=== PATIENT | male | born 1965 | race African-American/Black ===

== ENCOUNTER 2019-12-04 19:18 | Inpatient (IN) | payer OTHER ==
[~2019-12-04] VITALS: Ht 177.8 cm; Wt 97.7 kg
[2019-12-04] MEDS ORDERED: IV NORMAL SALINE 1,000ML 1,000 ML IV SCH (19:29)
[2019-12-04] MEDS ORDERED: ASPIRIN CHEWABLE 81 MG TABLET. PO ONE (19:45)
[2019-12-04] MEDS: MORPHINE SULFATE 4 MG/ML DISP.SYRIN. IV/SQ PRN ×2 (20:00→20:58)
--- NOTE | 2019-12-04 20:16 | RAD ---
PORTABLE CHEST 1V Clinical indications: Chest pain and shortness of breath for several days. COMPARISON: None available. Findings: No acute lung infiltrate or pleural effusion or pulmonary edema or lung mass or pneumothorax is seen. The heart size, pulmonary vasculature, mediastinum and both anshul are unremarkable. Impression: No acute radiographic abnormality is seen. Electronically signed by: Jalil Lopes MD (12/04/2019 8:12 PM) [facility] [place]
[2019-12-04 20:20] LABS: BASO % 1 % (0-3); EOS # 0.1 x10^3/uL (0.0-0.7); EOS % 2 % (0-3); HEMATOCRIT 40.6 % (39.0-53.0); HEMOGLOBIN 13.4 g/dL (13.0-17.5); LYMPH # 1.2 x10^3/uL (1.0-4.8); LYMPH % 32 % (24-48); MEAN CORPUSCULAR HEMOGLOBIN 29 pg (25-35); MEAN CORPUSCULAR HGB CONC 33 g/dL (31-37); MEAN CORPUSCULAR VOLUME 89 fL (79-100); MONO # 0.4 x10^3/uL (0.0-1.1); MONO % 11 % (0-9); NEUT # 2.1 x10^3uL (1.8-7.7); NEUT % 54 % (31-73); PLATELET COUNT 196 x10^3/uL (140-400); RED BLOOD COUNT 4.58 x10^6/uL (4.30-5.70); RED CELL DISTRIBUTION WIDTH 13.7 % (11.5-14.5); WHITE BLOOD COUNT 3.8 x10^3/uL (4.0-11.0)
[2019-12-04 20:27] LABS: CALCIUM 8.4 mg/dL (8.5-10.1); CREATININE 1.2 mg/dL (0.7-1.3); GFR 63.1; POTASSIUM 4.2 mmol/L (3.5-5.1)
--- NOTE | 2019-12-04 20:34 | PHYS DOC ---
Past History Past Medical History: Diabetes, Hypotension, Other Additional Past Medical Histor: tricuspid regurg Past Surgical History: No Surgical History Alcohol Use: None Social History Narrative: x 2 weeks ago General Adult EDM: Chief Complaint: CHEST PAIN HPI: HPI: Patient is a 54-year-old male who presents with complaint of chest pain and shortness of breath for the last day. Patient rates the chest pain at about a 4 out of 10. He also indicates that he has a headache that is currently a 6 out of 10. He states the shortness of breath is worsened with exertion. He describes the chest pain is sharp in nature. He does admit to mild cough. [] Review of Systems: Review of Systems: Constitutional: Denies fever or chills Respiratory: Complains of shortness of breath Cardiovascular: Denies chest pain or edema GI: Denies abdominal pain, nausea or diarrhea Neurologic: Denies headache, focal weakness or sensory changes A full 10 point review of systems has been reviewed and is otherwise negative. Heart Score: HEART Score for Chest Pain: HEART Score for Chest Pain Response (Comments) Value History Slighlty/Non-Suspicious 0 ECG Nonspecific Repolarizatio 1 Age >45 - < 65 1 Risk Factors 1 or 2 Risk Factors 1 Troponin < Normal Limit 0 Total 3 Risk Factors: Risk Factors: DM, Current or recent (<one month) smoker, HTN, HLP, family hi story of CAD, obesity. Risk Scores: Score 0 - 3: 2.5% MACE over next 6 weeks - Discharge Home Score 4 - 6: 20.3% MACE over next 6 weeks - Admit for Clinical Observation Score 7 - 10: 72.7% MACE over next 6 weeks - Early Invasive Strategies Current Medications: Current Meds: Current Medications Medications (Trade) Dose Ordered Sig/[facility] Start Time Stop Time Status Last Admin Dose Admin Aspirin (Aspirin Chewable) 324 mg 1X ONCE 12/04/19 19:45 12/04/19 19:46 DC Morphine Sulfate (Morphine 4mg Syringe) 4 mg PRN Q15MIN PRN 12/04/19 19:30 12/05/19 19:29 12/04/19 20:00 4 MG Sodium Chloride 1,000 ml @ 1,000 mls/hr Q1H 12/04/19 19:29 12/04/19 20:28 12/04/19 19:59 1,000 MLS/HR Allergies: Allergies: Allergies Coded Allergies Type Severity Reaction Last Updated Verified Fish Containing Products Allergy Intermediate hives 12/04/19 Yes Physical Exam: PE: Constitutional: Well developed, well nourished, no acute distress, non-toxic appearance. [] HENT: Normocephalic, atraumatic, bilateral external ears normal, oropharynx m oist, no oral exudates, nose normal. [] Eyes: PERRLA, EOMI, conjunctiva normal, no discharge. [] Neck: Normal range of motion, no tenderness, supple, no stridor. [] Cardiovascular: Mildly tachycardic rate with regular rhythm [] Lungs & Thorax: Bilateral breath sounds clear to auscultation [] Abdomen: Bowel sounds normal, soft, no tenderness, no masses, no pulsatile masses. [] Skin: Warm, dry, no erythema, no rash. [] Extremities: No tenderness, no cyanosis, no clubbing, ROM intact, no edema. [] Neurologic: Alert and oriented X 3, no focal deficits noted. [] Current Patient Data: Labs: Laboratory Tests Test 12/04/19 20:01 White Blood Count 3.8 x10^3/uL (4.0-11.0) L Red Blood Count 4.58 x10^6/uL (4.30-5.70) Hemoglobin 13.4 g/dL (13.0-17.5) Hematocrit 40.6 % (39.0-53.0) Mean Corpuscular Volume 89 fL (79-100) Mean Corpuscular Hemoglobin 29 pg (25-35) Mean Corpuscular Hemoglobin Concent 33 g/dL (31-37) Red Cell Distribution Width 13.7 % (11.5-14.5) Platelet Count 196 x10^3/uL (140-400) Neutrophils (%) (Auto) 54 % (31-73) Lymphocytes (%) (Auto) 32 % (24-48) Monocytes (%) (Auto) 11 % (0-9) H Eosinophils (%) (Auto) 2 % (0-3) Basophils (%) (Auto) 1 % (0-3) Neutrophils # (Auto) 2.1 x10^3uL (1.8-7.7) Lymphocytes # (Auto) 1.2 x10^3/uL (1.0-4.8) Monocytes # (Auto) 0.4 x10^3/uL (0.0-1.1) Eosinophils # (Auto) 0.1 x10^3/uL (0.0-0.7) Basophils # (Auto) 0.0 x10^3/uL (0.0-0.2) Vital Signs: Vital Signs Date Time Temp Pulse Resp B/P (MAP) Pulse Ox O2 Delivery O2 Flow Rate FiO2 12/04/19 20:13 108 18 128/88 (101) 97 Room Air 12/04/19 19:26 99.0 EKG: EKG: [] Radiology/Procedures: Radiology/Procedures: [] Impressions: PROCEDURE: PORTABLE CHEST 1V PORTABLE CHEST 1V Clinical indications: Chest pain and shortness of breath for several days. COMPARISON: None available. Findings: No acute lung infiltrate or pleural effusion or pulmonary edema or lung mass or pneumothorax is seen. The heart size, pulmonary vasculature, mediastinum and both anshul are unremarkable. Impression: No acute radiographic abnormality is seen. Electronically signed by: Carla Lopes MD (12/04/2019 8:12 PM) [facility] [place] DICTATED AND SIGNED BY: CARLA LOPES MD DATE: 12/04/192011 CC: KAMILAH WHITE Jr. DO ~ Course & Med Decision Making: Course & Med Decision Making Pertinent Labs and Imaging studies reviewed. (See chart for details) [] Dragon Disclaimer: Dragon Disclaimer: This electronic medical record was generated, in whole or in part, using a voice recognition dictation system. Departure Departure: Impression: Primary Impression: Chest pain Qualified Codes: R07.9 - Chest pain, unspecified Disposition: ADMITTED INPATIENT Admitting Physician: Bruce Varghese Condition: IMPROVED KAMILAH WHITE Jr. DO December 04, 2019 20:34
[2019-12-04 20:39] LABS: ALBUMIN 3.1 g/dL (3.4-5.0); ALBUMIN/GLOBULIN RATIO 0.9 (1.0-1.7); MAGNESIUM 1.7 mg/dL (1.8-2.4); TOTAL BILIRUBIN 0.2 mg/dL (0.2-1.0); TOTAL PROTEIN 6.5 g/dL (6.4-8.2)
[2019-12-04] MEDS ORDERED: KETOROLAC 30 MG/ML VIAL. IVP ONE (20:45)
[2019-12-04] MEDS: NITROGLYCERIN SUBLINGUAL 0.4 MG BOTTLE OF 25. SL PRN ×2 (21:21→22:04)
--- NOTE | 2019-12-04 22:28 | EKG ---
[address] [address] Test Date: 2019-12-04 Test Time: 19:35:32 Pat Name: ABIGAIL WHITTAKER Department: Room: Gender: M Pulper Tender: : 1965 Requested By: KAMILAH WHITE Order Number: [id number] Reading MD: Von Gan Measurements Intervals Kelly Rate: 116 P: 36 NC: 156 QRS: 26 QRSD: 74 T: 86 QT: 296 QTc: 411 Interpretive Statements SINUS TACHYCARDIA LEFT ATRIAL ABNORMALITY QRS(T) CONTOUR ABNORMALITY CONSISTENT WITH ANTEROSEPTAL INFARCT PROBABLY OLD ABNORMAL ECG RI6.02 No previous ECG available for comparison Electronically Signed On 12-05-2019 8:07:49 CDT by Von Gan
[2019-12-04] MEDS ORDERED: ONDANSETRON PF 4 MG/2 ML VIAL. IVP PRN (22:30)
[2019-12-04] MEDS ORDERED: MORPHINE SULFATE 4 MG/ML DISP.SYRIN. IVP PRN (22:30)
[2019-12-04 23:40] VITALS: BP 126/81
--- NOTE | 2019-12-05 00:30 | NUR ---
The patient, ABIGAIL WHITTAKER, 54 y/o, M admitted by MATY AREVALO MD, was given written information regarding hospital policies, unit procedures and contact persons. Valuables were checked and noted. PT stated he started having chest pain and a headache after insulin administration at [facility]. PT is transitioning to [facility] for [facility] and substance abuse treatment next week. PT is staying at [facility] until a bed becomes available Tuesday.
[2019-12-05 01:03] LABS: BARBITURATES NEG (NEG); BENZODIAZEPINES NEG (NEG); CANNABINOIDS NEG (NEG); COCAINE NEG (NEG); METHADONE NEG (NEG); OPIATES POS (NEG); PHENCYCLIDINE NEG (NEG)
[2019-12-05 01:04] LABS: BACTERIA,URINE 0 /HPF (0-FEW); BILIRUBIN,URINE NEG (NEG); CLARITY,URINE CLEAR; COLOR,URINE YELLOW; GLUCOSE,URINE NEG (NEG); NITRITE,URINE NEG (NEG); RBC,URINE 0 /HPF (0-2); SQUAMOUS EPITHELIAL CELL,UR OCC /LPF; UROBILINOGEN,URINE 0.2 mg/dL (0.2 mg/dL); WBC,URINE RARE /HPF (0-4)
[2019-12-05 01:05] LABS: AMPHETAMINE/METHAMPHETAMINE NEG (NEG)
[2019-12-05 06:21] VITALS: BP 137/87
--- NOTE | 2019-12-05 08:07 | PDOC2 ---
CARDIAC CONSULT DATE OF CONSULT Date Of Consult DATE: 12/05/19 TIME: 08:01 REASON FOR CONSULT Reason for Consult Chest pain REFERRING PHYSICIAN Referring Physician Dr. Owens SOURCE Source: Chart review, Patient HPI History of Present Illness This is 54 yo male who presented secondary to chest pain. Patient reports pain began yesterday around 4 am. Describes pain as tightness in his central chest. Was worse with deep breathing. Was slightly dizzy. No SOA, diaphoresis, palpitation, or nausea/vomiting. Reports having normal echo, aside from mild mitral regurgitation, about 6 months ago at the [facility]. Had heart cath about 7 years ago with only "minimal plaque buildup". No recent stress test. Was treated at [facility] for the last 10 days for PTSD, drug use. Was discharged to [facility] through the [place] awaiting bed availability at the [place] treatment program. PAST MEDICAL HISTORY Cardiovascular: HTN, hyperipidemia Psych: Anxiety, Depression, Other (PTSD) Endocrine: Diabetes FAMILY HISTORY Family History: Diabetes SOCIAL HISTORY Smoke: No ALCOHOL: none Drugs: Cocaine, Crystal meth, Other (has been clean for 15 days) CURRENT MEDICATIONS Current Medications Current Medications Aspirin (Aspirin Chewable) 324 mg 1X ONCE PO ; Start 12/04/19 at 19:45; Stop 12/04/19 at 19:46; Status DC Morphine Sulfate (Morphine 4mg Syringe) 4 mg PRN Q15MIN PRN IV/SQ PAIN GREATER THAN 3/10 Last administered on 12/04/19at 20:58; Start 12/04/19 at 19:30; Stop 12/05/19 at 19:29 Sodium Chloride 1,000 ml @ 1,000 mls/hr Q1H IV Last administered on 12/04/19at 19:59; Start 12/04/19 at 19:29; Stop 12/04/19 at 20:28; Status DC Ketorolac Tromethamine (Toradol 30mg Vial) 30 mg 1X ONCE IVP Last administered on 12/04/19at 20:57; Start 12/04/19 at 20:45; Stop 12/04/19 at 20:51; Status DC Nitroglycerin (Nitrostat) 0.4 mg PRN Q5MIN PRN SL CHEST PAIN Last administered on 12/04/19at 22:04; Start 12/04/19 at 21:30 Ondansetron HCl (Zofran) 4 mg PRN Q4HRS PRN IVP NAUSEA/VOMITING; Start 12/04/19 at 22:30; Stop 12/05/19 at 22:29 Morphine Sulfate (Morphine 4mg Syringe) 4 mg PRN Q2HR PRN IVP PAIN; Start 12/04/19 at 22:30; Stop 12/05/19 at 22:29 ALLERGIES Allergies: Coded Allergies: Fish Containing Products (Verified Allergy, Intermediate, hives, 12/04/19) ROS Review of Systems 14 point ROS conducted with pertinent positives noted above in HPI. PHYSICAL EXAM General: Alert, Oriented X3, Cooperative, No acute distress HEENT: Atraumatic, Mucous membr. moist/pink Lungs: Clear to auscultation, Normal air movement, Other (central chest tenderness upon palpitation) Heart: Regular rate, Other (2/6 systolic murmur ) Abdomen: Soft, No tenderness Extremities: No edema, Normal pulses Skin: No breakdown Neuro: Normal speech, Sensation intact Psych/Mental Status: Mental status NL, Mood NL, Other (anxiuos ) MUSCULOSKELETAL: Osteoarthritic changes both hands VITALS Vital Signs Vital Signs Date Time Temp Pulse Resp B/P (MAP) Pulse Ox O2 Delivery O2 Flow Rate FiO2 12/05/19 06:21 98.1 86 18 137/87 (104) 96 Room Air LABS LABS Laboratory Tests Test 12/04/19 20:01 12/05/19 00:20 12/05/19 00:45 12/05/19 04:30 White Blood Count 3.8 x10^3/uL (4.0-11.0) Red Blood Count 4.58 x10^6/uL (4.30-5.70) Hemoglobin 13.4 g/dL (13.0-17.5) Hematocrit 40.6 % (39.0-53.0) Mean Corpuscular Volume 89 fL (79-100) Mean Corpuscular Hemoglobin 29 pg (25-35) Mean Corpuscular Hemoglobin Concent 33 g/dL (31-37) Red Cell Distribution Width 13.7 % (11.5-14.5) Platelet Count 196 x10^3/uL (140-400) Neutrophils (%) (Auto) 54 % (31-73) Lymphocytes (%) (Auto) 32 % (24-48) Monocytes (%) (Auto) 11 % (0-9) Eosinophils (%) (Auto) 2 % (0-3) Basophils (%) (Auto) 1 % (0-3) Neutrophils # (Auto) 2.1 x10^3uL (1.8-7.7) Lymphocytes # (Auto) 1.2 x10^3/uL (1.0-4.8) Monocytes # (Auto) 0.4 x10^3/uL (0.0-1.1) Eosinophils # (Auto) 0.1 x10^3/uL (0.0-0.7) Basophils # (Auto) 0.0 x10^3/uL (0.0-0.2) D-Dimer (Maral) 0.39 mg/L (0.00-0.50) Sodium Level 138 mmol/L (136-145) Potassium Level 4.2 mmol/L (3.5-5.1) Chloride Level 100 mmol/L (98-107) Carbon Dioxide Level 27 mmol/L (21-32) Anion Gap 11 (6-14) Blood Urea Nitrogen 13 mg/dL (8-26) Creatinine 1.2 mg/dL (0.7-1.3) Estimated GFR (Cockcroft-Gault) 63.1 BUN/Creatinine Ratio 11 (6-20) Glucose Level 116 mg/dL (70-99) Calcium Level 8.4 mg/dL (8.5-10.1) Magnesium Level 1.7 mg/dL (1.8-2.4) Total Bilirubin 0.2 mg/dL (0.2-1.0) Aspartate Amino Transf (AST/SGOT) 27 U/L (15-37) Alanine Aminotransferase (ALT/SGPT) 37 U/L (16-63) Alkaline Phosphatase 66 U/L (46-116) Troponin I Quantitative < 0.017 ng/mL (0-0.055) < 0.017 ng/mL (0-0.055) < 0.017 ng/mL (0-0.055) GT-Qhh-J-Type Natriuretic Peptide 52 pg/mL (0-124) Total Protein 6.5 g/dL (6.4-8.2) Albumin 3.1 g/dL (3.4-5.0) Albumin/Globulin Ratio 0.9 (1.0-1.7) Urine Collection Type Unknown Urine Color Yellow Urine Clarity Clear Urine pH 6.0 Urine Specific [place] <=1.005 Urine Protein Neg (NEG-TRACE) Urine Glucose (UA) Neg mg/dL (NEG) Urine Ketones (Stick) Neg mg/dL (NEG) Urine Blood Neg (NEG) Urine Nitrite Neg (NEG) Urine Bilirubin Neg (NEG) Urine Urobilinogen Dipstick 0.2 mg/dL (0.2 mg/dL) Urine Leukocyte Esterase Neg (NEG) Urine RBC 0 /HPF (0-2) Urine WBC Rare /HPF (0-4) Urine Squamous Epithelial Cells Occ /LPF Urine Bacteria 0 /HPF (0-FEW) Urine Opiates Screen Pos (NEG) Urine Methadone Screen Neg (NEG) Urine Barbiturates Neg (NEG) Urine Phencyclidine Screen Neg (NEG) Urine Amphetamine/Methamphetamine Neg (NEG) Urine Benzodiazepines Screen Neg (NEG) Urine Cocaine Screen Neg (NEG) Urine Cannabinoids Screen Neg (NEG) Urine Ethyl Alcohol Neg (NEG) Test 12/05/19 07:22 Glucose (Fingerstick) 120 mg/dL (70-99) ASSESSMENT/PLAN Assessment/Plan 1. Chest pain, atypical; AMI ruled out. 2. H/o hypotension; reportedly on florinef 3. Hyperlipidemia 4. Diabetes, II 5. Hypomagnesemia 6. PTSD, depression; awaiting bed availability at [place] treatment program. Hospitalized last week at [facility] in [facility] for a total of 10 days. Awaiting records 7. Substance abuse; cocaine and methamphetamine use (has been clean for 15 days) Recommendations ASA Lipids Replace Mg Resume home meds once list is available Outpatient stress test given risk factors, will need arranged at the [facility] due to insurance coverage NANI SANTIZO APRN December 05, 2019 08:07
[2019-12-05] MEDS ORDERED: MAGNESIUM SULFATE 2GM 50 ML IV ONE (08:45)
[2019-12-05] MEDS ORDERED: ASPIRIN ENTERIC COATED 81 MG TABLET.DR. PO SCH (09:00)
[2019-12-05] MEDS ORDERED: MIRT15TA PO (10:30)
[2019-12-05] MEDS ORDERED: FLUD0.1T PO (10:30)
[2019-12-05] MEDS ORDERED: GABA-586 PO (10:30)
[2019-12-05] MEDS ORDERED: TRAZ-120 PO (10:30)
[2019-12-05] MEDS ORDERED: ASPI81TA59 PO (10:30)
[2019-12-05] MEDS ORDERED: MULT-766 PO (10:30)
[2019-12-05] MEDS ORDERED: SERT100T PO (10:30)
[2019-12-05] MEDS ORDERED: CHOL10002 PO (10:30)
[2019-12-05] MEDS ORDERED: INSU100I16 SQ ×2 (10:30)
[2019-12-05] MEDS ORDERED: LIRA0.6P2 SQ (10:30)
[2019-12-05] MEDS ORDERED: METF10007 PO (10:30)
[2019-12-05 10:35] VITALS: BP 135/87
[2019-12-05 14:07] LABS: THYROID STIM HORMONE (TSH) 1.404 uIU/mL (0.358-3.740)
--- NOTE | 2019-12-05 15:36 | DS ---
DATE OF DISCHARGE: HOSPITAL COURSE: The patient is a 54-year-old male patient with multiple risk factors for coronary artery disease, who came with somewhat atypical chest pain. He was evaluated in the Emergency Room and his first set of cardiac enzyme was less than 0.017 and therefore, he was admitted to do 2 more sets of cardiac enzymes, check his fasting lipid profile and consult the cardiology team. He has 2 more sets of cardiac enzymes, showed a troponin was less than 0.017. His fasting lipid profile showed his serum triglycerides were 69, total cholesterol 186, LDL was 111, VLDL was 13, HDL cholesterol was 62 and ratio was 3. TSH was 1.404. He was evaluated by the Cardiology team and basically myocardial infarction was ruled out. The recommendation is that the patient can be discharged and to arrange for him to have an outpatient stress test given risk factors to be arranged at the [facility] due to insurance coverage. PHYSICAL EXAMINATION: GENERAL: When I saw him this afternoon, he looked well and was clearly in no apparent respiratory distress. No pallor, jaundice, cyanosis or thyromegaly. No jugular venous distention. No limb edema. VITAL SIGNS: His heart rate was 96, blood pressure was 135/87, temperature was 98, respiratory rate 20, and oxygen saturation was 97%. The rest of clinical exam is stable, has not changed. LABORATORY DATA: As I stated, showed 3 sets of cardiac enzymes that were negative. His fasting lipid profile is within acceptable range. DISCHARGE MEDICATIONS: The patient was discharged back to the [place] to continue on aspirin 81 mg once a day, ergocalciferol 25 mcg once a day, fludrocortisone acetate 50 mcg twice a day, gabapentin 300 mg 3 times a day and NovoLog 70/30, FlexPen 50 units with breakfast and 70/30 FlexPen 15 units before lunch. He is on Victoza 1.8 mg daily, metformin 1000 mg twice a day with meals, mirtazapine 50 mg at bedtime, multivitamin 1 tablet once a day, sertraline for Zoloft 150 mg daily for depression and trazodone 25 mg at bedtime for insomnia. FINAL DISCHARGE DIAGNOSES: 1. Atypical chest pain. 2. Acute myocardial infarction ruled out. 3. Hypertension. 4. Hyperlipidemia. 5. Type 2 diabetes mellitus. 6. Anxiety. 7. Depression. 8. Posttraumatic stress disorder. SWETA CRUZ MD DR: MAC/georgina JOB#: [id number] / [id number]
[2019-12-05 15:42] VITALS: BP 146/92
--- NOTE | 2019-12-05 15:50 | HP ---
ADMIT DATE: 12/05/2019 HISTORY OF PRESENT ILLNESS: The patient is a 54-year-old -[place] male patient who came to the Emergency Room complaining of chest pain. The pain started around 4:00 a.m. yesterday, described as tightness in his central chest, worse with deep breath, was slightly dizzy. Had denied any shortness of breath, diaphoresis, palpitation, nausea, or vomiting. He reported that he has normal echo aside from mild mitral regurgitation about 6 months ago at [facility]. He had a cardiac catheterization about 7 years ago with only minimal plaque buildup. No recent stress test. He was treated at [facility] for the last 10 days for PTSD, drug abuse and was discharged to [facility] through the [place], awaiting bed availability for the [place] PTSD treatment program. He was evaluated in [facility] Room of [facility] and has had lab work done. His first troponin was less than 0.017 and therefore, the patient was admitted to do 2 more sets of cardiac enzymes, check his fasting lipid profile and consult the Cardiology team. PAST MEDICAL HISTORY: Significant for hypertension, hyperlipidemia, type 2 diabetes mellitus, anxiety, depression, and posttraumatic stress disorder. PAST SURGICAL HISTORY: We did have actually cardiac catheterization about 7 years ago with minimal plaque buildup. FAMILY HISTORY: Positive for diabetes. SOCIAL HISTORY: He apparently does not smoke, drink alcohol or use cocaine and crystal methamphetamine; however, he claims that he has been clean for the last 15 days. ALLERGIES: HE IS ALLERGIC TO FISH CONTAINING PRODUCTS. MEDICATIONS: He is currently on following medications: He is on aspirin 81 mg once a day, gabapentin 300 mg 3 times a day, mirtazapine 15 mg at bedtime, sertraline (Zoloft) 150 mg daily, trazodone 50 mg at bedtime, fludrocortisone acetate 50 mcg twice a day, metformin 1000 mg twice a day with meals, Victoza 1.8 mg subcutaneously daily. He is on NovoLog 70/30, 50 units subcutaneous twice a day with meals and NovoLog 70/30, 15 units with lunch. He is on vitamin D3 25 mcg or 1000 units p.o. daily, and multivitamin 1 tablet once a day. REVIEW OF SYSTEMS: As per history of present illness. PHYSICAL EXAMINATION: GENERAL: On arrival to the Emergency Room, he looked well and was clearly in no apparent respiratory distress. No pallor, jaundice, cyanosis or thyromegaly. No jugular venous distention. No limb edema. VITAL SIGNS: His heart rate was 118, blood pressure was 137/93, temperature was 99, respiratory rate 20, and oxygen saturation was 96%. HEAD, EYES, EARS, NOSE AND THROAT: Normocephalic and atraumatic. NECK: Supple. HEART: Showed normal first and second heart sounds. No gallop, rub or murmur. CHEST: Clear to auscultation. No crepitation or rhonchi. ABDOMEN: Distended, soft, nontender. NEUROLOGIC: He is awake, alert, responding appropriately. All cranial nerves intact. EXTREMITIES: He moves extremities without difficulty. He ambulates without assistance or assistive devices. LABORATORY DATA: On admission showed a white cell count of 3800, hemoglobin 13, hematocrit 40, MCV 89, and platelet count of 196,000. His chemistry showed a serum sodium 138, potassium 4.2, chloride 100, bicarbonate 27, anion gap of 11, BUN 13, creatinine 1.2, estimated GFR was 63 mL per minute. His glucose 116, calcium was 8.4, magnesium was 1.7. His total bilirubin, AST, ALT, alkaline phosphatase were normal. His troponin was less than 0.017. Beta natriuretic peptide was 52. Total protein was 6.5, albumin was 3.1. His D-dimer was 0.39. Urinalysis was essentially unremarkable and toxic screen was positive for opiates, negative for methadone, barbiturates, phencyclidine, amphetamine, methamphetamine, benzodiazepine, cocaine, cannabinoids and alcohol. His chest x-ray showed no acute lung infiltrate or pleural effusion or pulmonary edema or lung masses or pneumothorax seen. The heart size, pulmonary vasculature, mediastinum and both hilar are unremarkable. His EKG showed that the patient was in sinus tachycardia with left atrial abnormality, QRS contour abnormality consistent with anteroseptal infarct, probably old. PLAN: The patient was admitted to do 2 more sets of cardiac enzyme, check his fasting lipid profile and consult the Cardiology team. SWETA CRUZ MD DR: MAC/georgina JOB#: [id number] / [id number]
--- NOTE | 2019-12-05 16:37 | NUR ---
NSG NOTE; DISCHARGE VERBAL AND WRITTEN DISCHARGE INSTRUCTIONS GIVEN TO PT WITH VERBAL UNDERSTANDING. DISCHARGE TO [facility]MED[facility] AT 1630 VIA AMB ACCOMP BY SELF
[2019-12-05] MEDS ORDERED: INSULIN NPH/REG HUM 70/30 300 UNITS/3 ML VIAL. SQ SCH (17:00)
[2019-12-05] MEDS ORDERED: metFORMIN 500 MG TABLET PO SCH (17:00)
[2019-12-05] MEDS ORDERED: GABAPENTIN 300 MG CAPSULE. PO SCH (21:00)
[2019-12-05] MEDS ORDERED: traZODone 50 MG TABLET. PO SCH (21:00)
[2019-12-05] MEDS ORDERED: FLUDROCORTISONE 0.1 MG TABLET PO SCH (21:00)
[2019-12-05] MEDS ORDERED: ATORVASTATIN CALCIUM 10 MG TABLET. PO SCH (21:00)
[2019-12-05] MEDS ORDERED: MIRTAZAPINE 15 MG TABLET PO SCH (21:00)
[2019-12-06] MEDS ORDERED: ASPIRIN ENTERIC COATED 81 MG TABLET.DR. PO SCH (08:00)
[2019-12-06] MEDS ORDERED: CHOLECALCIFEROL (VITAMIN D3) 1,000 UNIT TABLET PO SCH (09:00)
[2019-12-06] MEDS ORDERED: NON FORMULARY ITEM (Liraglutide (Victoza 3-Pak) 1.8 MG) SQ SCH (09:00)
[2019-12-06] MEDS ORDERED: ASPIRIN CHEWABLE 81 MG TABLET. PO SCH (09:00)
[2019-12-06] MEDS ORDERED: SERTRALINE 100 MG TABLET. PO SCH (09:00)
[2019-12-06] MEDS ORDERED: MULTIVITAMIN with MINERAL TABLET. PO SCH (09:00)
[2019-12-06] MEDS ORDERED: INSULIN NPH/REG HUM 70/30 300 UNITS/3 ML VIAL. SQ SCH (12:00)
== END 2019-12-05 16:30 | disposition home or self-care (01) | DRG 392 ==
LOC: ER 19:18 → OBSVTOIN 22:30 → 1 SOUTH 22:30
PROVIDERS: ADMIT Hospitalist; ATTEND Internal Medicine
DX: K21.9 Gastro-esophageal reflux disease without esophagitis (principal); E11.9 Type 2 diabetes mellitus without complications; E78.5 Hyperlipidemia, unspecified; E83.42 Hypomagnesemia; F14.10 Cocaine abuse, uncomplicated; F41.8 Other specified anxiety disorders; F15.10 Other stimulant abuse, uncomplicated; F43.10 Post-traumatic stress disorder, unspecified; I07.1 Rheumatic tricuspid insufficiency; R07.89 Other chest pain; I10 Essential (primary) hypertension; Z75.1 Person awaiting admission to adequate facility elsewhere; Z83.3 Family history of diabetes mellitus
CPT/HCPCS: 36415; 71045; 80053; 80061; 80307; 81001; 82947; 83735; 83880; 84443; 84484; 85025; 85379; 93005; 96361; 96374; 96376; J1815; J1885; J2270; J3475; 99285-25; J7030

== ENCOUNTER 2020-12-06 18:05 | Emergency (ER) | payer OTHER ==
[~2020-12-06] VITALS: Ht 177.8 cm; Wt 80.0 kg
[~2020-12-06 18:05] MED LIST: ASPI81TA59 PO; CHOL10002 PO; FLUD0.1T PO; GABA-586 PO; INSU100I16 SQ; LIRA0.6P2 SQ; METF10007 PO; MIRT-37 PO; MULT-766 PO; SERT100T PO; TRAZ-120 PO
[2020-12-06] MEDS ORDERED: IV RINGERS SOLUTION,LACTATED 1,000 ML IV ONE (18:30)
[2020-12-06 18:46] VITALS: BP 123/65
[2020-12-06 18:47] LABS: BASO % 1 % (0-3); EOS # 0.1 x10^3/uL (0.0-0.7); EOS % 3 % (0-3); HEMATOCRIT 40.9 % (39.0-53.0); HEMOGLOBIN 13.9 g/dL (13.0-17.5); LYMPH # 1.4 x10^3/uL (1.0-4.8); LYMPH % 47 % (24-48); MEAN CORPUSCULAR HEMOGLOBIN 31 pg (25-35); MEAN CORPUSCULAR HGB CONC 34 g/dL (31-37); MEAN CORPUSCULAR VOLUME 90 fL (79-100); MONO # 0.3 x10^3/uL (0.0-1.1); MONO % 9 % (0-9); NEUT # 1.2 x10^3uL (1.8-7.7); NEUT % 41 % (31-73); PLATELET COUNT 180 x10^3/uL (140-400); RED BLOOD COUNT 4.56 x10^6/uL (4.30-5.70); RED CELL DISTRIBUTION WIDTH 13.4 % (11.5-14.5); WHITE BLOOD COUNT 2.9 x10^3/uL (4.0-11.0)
[2020-12-06 18:53] LABS: CALCIUM 8.7 mg/dL (8.5-10.1); CREATININE 1.2 mg/dL (0.7-1.3); GFR 76.1; POTASSIUM 4.8 mmol/L (3.5-5.1)
[2020-12-06 18:58] LABS: ALBUMIN 3.1 g/dL (3.4-5.0); TOTAL BILIRUBIN 0.8 mg/dL (0.2-1.0); TOTAL PROTEIN 6.1 g/dL (6.4-8.2)
--- NOTE | 2020-12-06 18:59 | PHYS DOC ---
Past History Past Medical History: Alcoholism, Depression Additional Past Medical Histor: tricuspid regurg Past Surgical History: No Surgical History Alcohol Use: None Adult General Chief Complaint Chief Complaint: HYPERGLYCEMIA HPI HPI Patient is a 55-year-old male with a past medical history significant for diabetes, on oral medications, anxiety and depression who presents to the emergency department with a chief complaint of hyperglycemia. States he has been having trouble over the last couple of months keeping his blood sugar controlled on his oral medications. States he is , [facility] and [facility] have been trying to control his diabetes without using insulin. Denies headache, chest pain, shortness of breath, abdominal pain, nausea, vomiting, dysuria, hematuria or blood in the stool. States he has been urin ating a little more than usual and it seems a little darker than usual and his mouth is dry and he seems thirsty. Denies any recent traumas, travels, illnesses, fevers, known ill contacts. Patient states he is tried to quarantine himself as much as possible away from people to avoid getting sick over the last several months. Review of Systems Review of Systems Review of systems otherwise unremarkable except noted in HPI Current Medications Current Medications Current Medications Medications (Trade) Dose Ordered Sig/Melida Start Time Stop Time Status Last Admin Dose Admin Lactated Ringer's 1,000 ml @ 1,000 mls/hr 1X ONCE 12/06/20 18:30 12/06/20 19:29 12/06/20 18:37 1,000 MLS/HR Allergies Allergies Allergies Coded Allergies Type Severity Reaction Last Updated Verified Fish Containing Products Allergy Intermediate hives 12/04/19 Yes Physical Exam Physical Exam Constitutional: Well developed, well nourished, no acute distress, non-toxic appearance. [] HENT: Normocephalic, atraumatic, bilateral external ears normal, oropharynx moist, no oral exudates, nose normal. [] Eyes: conjunctiva normal, no discharge. [] Neck: Normal range of motion, no tenderness, supple, no stridor. [] Cardiovascular:Heart rate regular rhythm, no murmur [] Lungs & Thorax: Bilateral breath sounds clear to auscultation [] Abdomen: soft, no tenderness, no masses, no pulsatile masses. [] Skin: Warm, dry, no erythema, no rash. [] Back: no CVA tenderness. [] Extremities: No tenderness, no cyanosis, no clubbing, ROM intact, no edema. [] Neurologic: Alert and oriented X 3, normal motor function, normal sensory func tion, no focal deficits noted. [] Psychologic: Affect normal, judgement normal, mood normal. [] Current Patient Data Vital Signs Vital Signs Date Time Temp Pulse Resp B/P (MAP) Pulse Ox O2 Delivery O2 Flow Rate FiO2 12/06/20 18:46 97.2 89 16 123/65 (84) 98 Room Air Lab Results Laboratory Tests Test 12/06/20 18:15 12/06/20 18:20 Glucose (Fingerstick) 390 mg/dL (70-99) H White Blood Count 2.9 x10^3/uL (4.0-11.0) L Red Blood Count 4.56 x10^6/uL (4.30-5.70) Hemoglobin 13.9 g/dL (13.0-17.5) Hematocrit 40.9 % (39.0-53.0) Mean Corpuscular Volume 90 fL (79-100) Mean Corpuscular Hemoglobin 31 pg (25-35) Mean Corpuscular Hemoglobin Concent 34 g/dL (31-37) Red Cell Distribution Width 13.4 % (11.5-14.5) Platelet Count 180 x10^3/uL (140-400) Neutrophils (%) (Auto) 41 % (31-73) Lymphocytes (%) (Auto) 47 % (24-48) Monocytes (%) (Auto) 9 % (0-9) Eosinophils (%) (Auto) 3 % (0-3) Basophils (%) (Auto) 1 % (0-3) Neutrophils # (Auto) 1.2 x10^3uL (1.8-7.7) L Lymphocytes # (Auto) 1.4 x10^3/uL (1.0-4.8) Monocytes # (Auto) 0.3 x10^3/uL (0.0-1.1) Eosinophils # (Auto) 0.1 x10^3/uL (0.0-0.7) Basophils # (Auto) 0.0 x10^3/uL (0.0-0.2) EKG EKG [] Radiology/Procedures Radiology/Procedures [] Heart Score C/O Chest Pain: No Risk Factors: Risk Factors: DM, Current or recent (<one month) smoker, HTN, HLP, family history of CAD, obesity. Risk Scores: Risk Factors: DM, Current or recent (<one month) smoker, HTN, HLP, family history of CAD, obesity. Course & Med Decision Making Course & Med Decision Making Patient is a 55-year-old male who presents with a chief complaint of hyperglycemia over the last few months not controlled on his oral medications Vital signs not concerning. Physical exam noted above. POC glucose 390. Placed on monitor with IV access established and IV fluids started. Laboratory analysis notable for hyperglycemia and mild leukopenia. After for IV fluid resuscitation, patient's blood sugar down to 285. pH of 7.3 with a bicarb of 26. Patient lactate was 3. 4 1 Discussed all findings with patient and offered admission to the hospital for continued evaluation and treatment of dehydration, hyperglycemia and elevated lactate. Discussed with patient that the lactate could be from dehydration as he has uncontrolled blood sugar but could also be due to an infection. Stated we could keep him overnight and get cultures, get fluid and get his blood sugar under better control. Patient stated he was not sure what he wanted to do yet and asked for 5 or 10 minutes to think about it. Patient got up, told the nurses that he wanted to leave and left without discussing options. Told nursing staff he was ready just to discharge home. Dragon Disclaimer Dragon Disclaimer This electronic medical record was generated, in whole or in part, using a voice recognition dictation system. Departure Departure: Disposition: 07 LEFT AWOL/ELOPED Condition: IMPROVED Referrals: PCP,CAMILLE (PCP) JENNY STOUT MD Patient Instructions: Hyperglycemia, Lactic Acid, Lactate ELIZABETH ALEMAN MD December 06, 2020 18:59
[2020-12-06 19:33] LABS: BILIRUBIN,URINE NEG (NEG); CLARITY,URINE CLEAR; COLOR,URINE YELLOW; GLUCOSE,URINE 500 mg/dL (NEG); NITRITE,URINE NEG (NEG)
[2020-12-06 19:34] LABS: BACTERIA,URINE 0 /HPF (0-FEW); RBC,URINE 0 /HPF (0-2); WBC,URINE 0 /HPF (0-4)
--- NOTE | 2020-12-07 00:43 | EKG ---
[address] [address] Test Date: 2020-12-06 Test Time: 20:34:19 Pat Name: ABIGAIL WHITTAKER Department: Room: Gender: M [employer] Member: : 1965 Requested By: ELIZABETH ALEMAN Order Number: [id number] Reading MD: Measurements Intervals [place] Rate: 89 P: 31 WA: 154 QRS: 31 QRSD: 70 T: 52 QT: 340 QTc: 415 Interpretive Statements SINUS RHYTHM NO SPECIFIC ECG ABNORMALITIES RI6.02 No previous ECG available for comparison
== END 2020-12-06 21:20 | disposition left against medical advice (07) ==
LOC: ER 18:05
DX: E11.65 Type 2 diabetes mellitus with hyperglycemia (principal); F41.9 Anxiety disorder, unspecified; F32.9 Major depressive disorder, single episode, unspecified; E86.0 Dehydration
CPT/HCPCS: 36415; 80053; 81001; 82803; 82947; 84484; 85025; 93005; 96360; 99284; J7120